=== PATIENT | male | born 1990 | race Caucasian/White ===

== ENCOUNTER 2025-03-28 06:42 | Day surgery (SDC) | payer OTHER ==
[~2025-03-28] VITALS: Ht 175.3 cm; Wt 123.8 kg
[~2025-03-28 06:42] MED LIST: dexAMETHasone 4 MG/ML 1 ML VIAL IV ONE
[2025-03-28] MEDS ORDERED: OXYMETAZOLINE 0.05% NASAL SPRAY As Ordered ONE (06:59)
[2025-03-28] MEDS ORDERED: ONDANSETRON 4MG 2ML VIAL As Ordered ONE (07:08)
[2025-03-28] MEDS ORDERED: dexAMETHasone 4 MG/ML 1 ML VIAL As Ordered ONE (07:08)
[2025-03-28] MEDS ORDERED: SUGAMMADEX SODIUM 200 MG/2 ML VIAL As Ordered ONE (07:08)
[2025-03-28] MEDS ORDERED: ROCURONIUM BROMIDE 50MG/5ML VIAL As Ordered ONE (07:08)
[2025-03-28] MEDS ORDERED: LIDOCAINE 2% 100 MG/5 ML SDV (FOR ANES.) As Ordered ONE (07:08)
[2025-03-28] MEDS ORDERED: MIDAZOLAM INJ 2 MG/2 ML VIAL As Ordered ONE (07:29)
[2025-03-28] MEDS: AMPICILLIN SOD/SULBACTAM SOD 3 GM in D5W MINI-BAG 100 ML IV ONE (08:06)
[2025-03-28] MEDS ORDERED: ACETAMINOPHEN 1000MG/100ML IV BAG As Ordered ONE (08:07)
[2025-03-28] MEDS: CHLORHEXIDINE GLUCONATE 0.12% 15 ML UDC As Ordered ONE (08:20)
[2025-03-28] MEDS ORDERED: LR 1,000 ML IV SCH ×2 (08:30→09:10)
[2025-03-28] MEDS ORDERED: HYDROMORPHONE HCL 0.5 MG/0.5 ML SYRINGE IV PRN (09:10)
[2025-03-28] MEDS ORDERED: ONDANSETRON 4MG 2ML VIAL IV PRN (09:10)
[2025-03-28 10:10] VITALS: BP 149/87; TEMP 97.2; O2SAT 97
== END 2025-03-28 10:20 | disposition home or self-care (01) ==
LOC: M SDC 06:42
PROVIDERS: ATTEND Dentist
DX: K02.9 Dental caries, unspecified (principal); K08.89 Other specified disorders of teeth and supporting structures; G47.33 Obstructive sleep apnea (adult) (pediatric); T88.4XXD Failed or difficult intubation, subsequent encounter; F17.201 Nicotine dependence, unspecified, in remission
CPT/HCPCS: 88300; D7140; D7210; D7311; J0131; J0295; J0666; J1100; J2250; J2405; J3010